=== PATIENT | male | born 1985 ===

== ENCOUNTER 2016-08-23 13:44 | Emergency (ER) | payer OTHER ==
[2016-08-23 13:54] VITALS: BP 113/56; PULSE 98; RESP 18; O2SAT 99
--- NOTE | 2016-08-23 14:20 | ED PDOC ---
HPI: General Adult Time Seen by Provider: 08/23/16 14:00 Chief Complaint (Nursing): Flu-like Symptoms Chief Complaint (Provider): Flue-like symptoms History Per: Patient History/Exam Limitations: no limitations Onset/Duration Of Symptoms: Days (x3) Additional Complaint(s): Jake Montano, 31 year old male presents to the ED on 08/23/16 with a fever associated with a dry cough, sore throat, intermittent nausea, and diffuse body aches for 3 days prior to arrival. He denies any abdominal pain and his last dose of Motrin was taken this morning. The patient did not take his temperature at home. Past Medical History Reviewed: Historical Data, Nursing Documentation, Vital Signs Vital Signs: Last Vital Signs Temp 99.8 F H 08/23/16 15:17 Pulse 98 H 08/23/16 13:51 Resp 18 08/23/16 13:51 BP 113/56 L 08/23/16 13:51 Pulse Ox 99 08/23/16 14:23 - Medical History PMH: No Chronic Diseases - Family History Family History: States: Unknown Family Hx - Immunization History Hx Tetanus Toxoid Vaccination: No Hx Influenza Vaccination: No Hx Pneumococcal Vaccination: No - Home Medications Home Medications: Ambulatory Orders Medication Instructions Recorded Ibuprofen 600 mg PO Q8 #30 tab 05/30/15 Azithromycin 250 mg PO DAILY #6 tab 08/23/16 - Allergies Allergies/Adverse Reactions: Allergies Allergy/AdvReac Type Severity Reaction Status Date / Time No Known Allergies Allergy Verified 08/23/16 13:50 Review of Systems ROS Statement: Except As Marked, All Systems Reviewed And Found Negative Constitutional: Positive for: Fever, Other (diffuse body aches ) ENT: Positive for: Other (sore throat) Respiratory: Positive for: Cough (dry) Gastrointestinal: Positive for: Nausea (intermittent). Negative for: Abdominal Pain Physical Exam - Reviewed Nursing Documentation Reviewed: Yes Vital Signs Reviewed: Yes - Physical Exam Appears: Positive for: Non-toxic, No Acute Distress Head Exam: Positive for: ATRAUMATIC, NORMOCEPHALIC Skin: Positive for: Normal Color Eye Exam: Positive for: EOMI, Normal appearance, PERRL ENT: Positive for: Pharyngeal Erythema Neck: Positive for: Normal, Painless ROM Cardiovascular/Chest: Positive for: Regular Rate, Rhythm, Chest Non Tender Respiratory: Positive for: Normal Breath Sounds. Negative for: Accessory Muscle Use, Respiratory Distress Gastrointestinal/Abdominal: Positive for: Normal Exam, Bowel Sounds, Soft Extremity: Positive for: Normal ROM Neurologic/Psych: Positive for: Alert, Oriented (x3) - Laboratory Results Result Diagrams: 08/23/16 14:45 08/23/16 14:45 Interpretation Of Abn Labs: elevated wbc - ECG O2 Sat by Pulse Oximetry: 99 (RA) Pulse Ox Interpretation: Normal Medical Decision Making Medical Decision Making: Initial Impression: Flue-like symptoms Initial Plan: * Chest Two Views (PA/LAT) [RAD] Stat * Influenza A B Stat * Rapid Strep Group A Antigen Stat * Tylenol 325 mg tab 975 mg PO Once Stat * Reevaluation Scribe Attestation: Documented by Chrissie Duckworth, acting as a scribe for Melina Pedraza PA-C. Provider Scribe Attestation: All medical record entries made by the Scribe were at my direction and personally dictated by me. I have reviewed the chart and agree that the record accurately reflects my personal performance of the history, physical exam, medical decision making, and the department course for this patient. I have also personally directed, reviewed, and agree with the discharge instructions and disposition. Disposition - Clinical Impression Clinical Impression: URI (upper respiratory infection) - Patient ED Disposition Is Patient to be Admitted: No Counseled Patient/Family Regarding: Diagnosis, Need For Followup, Rx Given - Disposition Referrals: [facility] [place] [Outside] Disposition: Routine/Home Disposition Time: 15:50 Condition: GOOD Prescriptions: Azithromycin 250 mg PO DAILY #6 tab Instructions: Upper Respiratory Infection (ED) Print Language: [place]
[2016-08-23] MEDS ORDERED: Sodium Chloride 0.9% 1,000 ML IV STA (14:37)
[2016-08-23 14:54] LABS: BASO % 0.3 % (0.0-2.0); HEMATOCRIT 39.1 % (35.0-51.0); LYMPH # 0.9 K/uL (1.0-4.3); LYMPH % 6.8 % (20.0-40.0); MEAN CELL VOLUME 91.1 fl (80.0-94.0); MEAN CORPUSCULAR HEMOGLOBIN 31.8 pg (27.0-31.0); MEAN CORPUSCULAR HGB CONC 34.9 g/dL (33.0-37.0); MEAN PLATELET VOLUME 8.7 fl (7.2-11.7); MONO # 1.8 K/uL (0.0-0.8); MONO % 13.5 % (0.0-10.0); NEUT # 10.4 K/uL (1.8-7.0); NEUT % 79.4 % (50.0-75.0); PLATELET COUNT 137 K/uL (130-400); RED CELL DISTRIBUTION WIDTH 13.2 % (11.5-14.5); WHITE BLOOD COUNT 13.1 K/uL (4.8-10.8)
[2016-08-23 15:13] LABS: ALB/GLOB RATIO 1.3 (1.0-2.1); ALKALINE PHOSPHATASE 55 U/L (38-126); ALT/SGPT 33 U/L (21-72); AST/SGOT 30 U/L (17-59); BILIRUBIN,TOTAL 0.6 mg/dl (0.2-1.3); BLOOD UREA NITROGEN 13 mg/dl (9-20); CALCIUM 9.2 mg/dL (8.4-10.2); CARBON DIOXIDE 30 mmol/L (22-30); CHLORIDE 96 mmol/L (98-107); GFR AFRICAN-AMERICAN > 60; GLUCOSE,RANDOM 99 mg/dL (75-110); POTASSIUM 3.5 MMOL/L (3.6-5.0); SODIUM 136 mmol/l (132-148); TOTAL PROTEIN 7.3 G/DL (6.3-8.2)
[2016-08-23 15:14] VITALS: TEMP 99.8
[2016-08-23 15:19] LABS: NEUTROPHIL 76 % (42-75); TOTAL CELLS COUNTED 100
--- NOTE | 2016-08-23 15:28 | RAD ---
HISTORY: cough, fever COMPARISON: No prior. TECHNIQUE: Chest PA and lateral FINDINGS: LUNGS: No active pulmonary disease. PLEURA: No significant pleural effusion identified. No pneumothorax apparent. CARDIOVASCULAR: Normal. OSSEOUS STRUCTURES: No significant abnormalities. VISUALIZED UPPER ABDOMEN: Normal. OTHER FINDINGS: None. IMPRESSION: No active disease.
== END 2016-08-23 16:17 | disposition home or self-care (01) ==
LOC: H.ER 13:44
DX: J06.9 Acute upper respiratory infection, unspecified (principal); R05 Cough; J02.9 Acute pharyngitis, unspecified

== ENCOUNTER 2017-03-23 19:01 | Emergency (ER) | payer OTHER ==
[2017-03-23 19:12] VITALS: PULSE 69; RESP 16
[2017-03-23] MEDS ORDERED: Sodium Chloride 0.9% 1,000 ML IV STA (19:40)
[2017-03-23] MEDS ORDERED: Iohexol 240 (50 ml) PO ONE (19:42)
--- NOTE | 2017-03-23 19:49 | ED PDOC ---
HPI: Abdomen Chief Complaint (Provider): abdominal pain History Per: Patient History/Exam Limitations: no limitations Onset/Duration Of Symptoms: Days Outside of [place] travel?: No Current Symptoms Are (Timing): Still Present Severity: Moderate Pain Scale Rating Of: 6 Quality Of Discomfort: Burning, "Pain" Associated Symptoms: Nausea, Vomiting Exacerbating Factors: Food Alleviating Factors: None <Amberly Wagner - Last Filed: 03/23/17 23:33> <Marty Blandon - Last Filed: 03/23/17 23:39> Time Seen by Provider: 03/23/17 19:15 Chief Complaint (Nursing): Abdominal Pain Additional Complaint(s): Jake Montano is a 32 yo male who presented to ED today, 03/23/2017 with 5 days duration bilateral abdominal pain at the level of the umbilicus. He describes the pain as burning in nature, mildly exacerbated by food and smells (5/10 before food, and 6/10 after food). Has vomited twice, once on 03/18, and once today- vomit is nonbloody, non-bilious, with no coffee ground looking substances. No blood in stool, no issues with urination, denies chest pain and shortness of breath, or other discomfort. He has not tried any medications at home, and nothing in particular makes the pain better. PMH: none Past Surg hx: none Meds: none Allergies: none Fam hx: non-contributory, denies FH of similar problems, gastric ulcers, gastric problems Social hx: 1-3 beers daily x 5 yrs (stopped after symptom started on 03/18), denies tobacco use, denies illicit drug use (Amberly Wagner) Past Medical History Reviewed: Vital Signs - Medical History PMH: No Chronic Diseases - Surgical History Surgical History: No Surg Hx - Family History Family History: States: Unknown Family Hx - Social History Alcohol: < 2 Drinks/Day (1-3 beers/day after work) Drugs: Denies - Immunization History Hx Tetanus Toxoid Vaccination: No Hx Influenza Vaccination: No Hx Pneumococcal Vaccination: No <Amberly Wagner - Last Filed: 03/23/17 23:33> <Marty Blandon - Last Filed: 03/23/17 23:39> Vital Signs: Last Vital Signs Temp 98.8 F 03/23/17 23:13 Pulse 69 03/23/17 23:13 Resp 16 03/23/17 23:13 BP 109/65 03/23/17 23:13 Pulse Ox 100 03/23/17 23:33 - Home Medications Home Medications: Ambulatory Orders Medication Instructions Recorded Ibuprofen 600 mg PO Q8 #30 tab 05/30/15 Azithromycin 250 mg PO DAILY #6 tab 08/23/16 - Allergies Allergies/Adverse Reactions: Allergies Allergy/AdvReac Type Severity Reaction Status Date / Time No Known Allergies Allergy Verified 03/23/17 19:08 Review of Systems Constitutional: Negative for: Fever, Chills, Malaise ENT: Negative for: Nose Congestion, Throat Pain Cardiovascular: Negative for: Chest Pain, Edema Respiratory: Negative for: Cough, Shortness of Breath Gastrointestinal: Positive for: Nausea, Vomiting, Abdominal Pain. Negative for : Diarrhea, Constipation, Melena, Hematochezia, Hematemesis Genitourinary Male: Negative for: Dysuria Musculoskeletal: Negative for: Leg Pain Skin: Negative for: Rash, Lesions Neurological: Negative for: Weakness, Numbness, Change in Speech <Amberly Wagner - Last Filed: 03/23/17 23:33> Physical Exam - Reviewed Vital Signs Reviewed: Yes - Physical Exam Appears: Positive for: Non-toxic, No Acute Distress Skin: Positive for: Normal Color, Warm, Dry. Negative for: Pallor Eye Exam: Positive for: Normal appearance, PERRL. Negative for: Conjunctival injection, Scleral icterus ENT: Positive for: Normal ENT Inspection. Negative for: Nasal Congestion, Pharyngeal Erythema Neck: Positive for: Normal, Painless ROM, Supple Cardiovascular/Chest: Positive for: Regular Rate, Rhythm, Chest Non Tender. Negative for: JVD, Murmur Respiratory: Positive for: Normal Breath Sounds. Negative for: Accessory Muscle Use, Rales, Rhonchi, Wheezing Pulses-Post. Tibialis (L): 2+ Pulses-Post. Tibialis (R): 2+ Pulses-Radial (L): 2+ Pulses-Radial (R): 2+ Gastrointestinal/Abdominal: Positive for: Bowel Sounds, Soft. Negative for: Tenderness, Mass, Distended, Guarding, Rebound Back: Positive for: Normal Inspection Extremity: Positive for: Normal ROM. Negative for: Tenderness, Pedal Edema, Deformity Neurologic/Psych: Positive for: Alert, Oriented <Amberly Wagner - Last Filed: 03/23/17 23:33> - Laboratory Results Result Diagrams: 03/23/17 19:50 03/23/17 19:50 - ECG O2 Sat by Pulse Oximetry: 100 <Amberly Wagner - Last Filed: 03/23/17 23:33> - Laboratory Results Result Diagrams: 03/23/17 19:50 03/23/17 19:50 <Marty Blandon Junior - Last Filed: 03/23/17 23:39> Medical Decision Making <Amberly Wagner - Last Filed: 03/23/17 23:33> <Jamia,Marty Junior - Last Filed: 03/23/17 23:39> Medical Decision Making: CBC w/ diff CMP Lipase Pepcid 20 mg IVP Zofran 4mg IVP NS 1L @ 999ml/hr Urinalysis Urine C&S Abdomen and Pelvis CT with IV and PO contrast - FINDINGS: Lower thorax: no acute findings ABDOMEN: Liver: unremarkable, no mass Gallbladder and bile ducts: no calcified stones, no ductal dilation Pancreas: no ductal dilation. no mass Spleen: no splenomegaly Adrenals: no mass Kidneys and ureters: no mass. no hydronephrosis Stomach and bowel: no definite mural thickening. no obstruction Appendix: normal caliber, no inflammation PELVIS: Bladder: unremarkable Reproductive: unremarkable as visualized ABDOMEN and PELVIS: Intraperitoneal space: no significant fluid collection. no free air Bones/joints: no acute fracture Soft tissues: minimal gynecomastia Vasculature: unremarkable, no aneurysm. Lymph nodes: few small calcifications/calcified lymph nodes within mesentery. IMPRESSION: 1. No definite acute intraabominal abnormality. 2. Incidental/non-acute findings are described above. Bloodwork and UA unremarkable. Pt felt better after interventions. Case discussed with Dr. Blandon. (Amberly Wagner) Patient presents to ED with complaints of abdominal pain. CT and labs read as normal. Patient is tolerating PO and notes improvement in symptom. Patient will be referred to the clinic and is stable for discharge. Scribe Attestation: Documented by Leydi Mixon acting as a scribe for Marty Blandon MD. Scribe Attestation: All medical record entries made by the Scribe were at my direction and personally dictated by me. I have reviewed the chart and agree that the record accurately reflects my personal performance of the history, physical exam, medical decision making, and the department course for this patient. I have also personally directed, reviewed, and agree with the discharge instructions and disposition. (Marty Blandon) Disposition - Patient ED Disposition Is Patient to be Admitted: No Counseled Patient/Family Regarding: Studies Performed - Disposition Disposition Time: 23:31 <Amberly Wagner - Last Filed: 03/23/17 23:33> <Marty Blandon - Last Filed: 03/23/17 23:39> - Clinical Impression Clinical Impression: Abdominal pain - Disposition Referrals: [facility] [Outside] [facility] [place] [Outside] Condition: IMPROVED Additional Instructions: follow up with your primary doctor in 1-2 days return to the ED with any worsening or concerning symptoms Instructions: Abdominal Pain (ED) Forms: [facility] (Urdu)
[2017-03-23 20:01] LABS: BASO # 0.1 K/uL (0.0-0.2); BASO % 0.8 % (0.0-2.0); EOS # 0.2 K/uL (0.0-0.7); EOS % 2.1 % (0.0-4.0); HEMOGLOBIN 15.6 g/dL (12.0-18.0); LYMPH # 1.9 K/uL (1.0-4.3); LYMPH % 24.4 % (20.0-40.0); MEAN CELL VOLUME 90.8 fl (80.0-94.0); MEAN CORPUSCULAR HEMOGLOBIN 31.9 pg (27.0-31.0); MEAN CORPUSCULAR HGB CONC 35.1 g/dL (33.0-37.0); MEAN PLATELET VOLUME 9.1 fl (7.2-11.7); MONO # 0.6 K/uL (0.0-0.8); MONO % 8.2 % (0.0-10.0); NEUT # 4.9 K/uL (1.8-7.0); NEUT % 64.5 % (50.0-75.0); NRBC % 0.1 % (0.0-0.0); RBC 4.9 Mil/uL (4.40-5.90); WHITE BLOOD COUNT 7.6 K/uL (4.8-10.8)
[2017-03-23 20:08] LABS: URINE BILIRUBIN NEGATIVE (NEGATIVE); URINE BLOOD NEGATIVE (NEGATIVE); URINE CLARITY CLEAR (Clear); URINE COLOR STRAW (YELLOW); URINE GLUCOSE (UA) NEG (Normal); URINE LEUKOCYTE ESTERASE NEG Leu/uL (Negative); URINE NITRATE NEGATIVE (NEGATIVE); URINE PROTEIN NEGATIVE (NEGATIVE); URINE UROBILINOGEN 0.2-1.0 mg/dL (0.2-1.0)
[2017-03-23 20:16] LABS: ALB/GLOB RATIO 1.5 (1.0-2.1); ALBUMIN 4.8 g/dL (3.5-5.0); ALT/SGPT 43 U/L (21-72); AST/SGOT 26 U/L (17-59); BLOOD UREA NITROGEN 17 mg/dl (9-20); CALCIUM 9.8 mg/dL (8.4-10.2); GFR AFRICAN-AMERICAN > 60; GFR NON-AFRICAN AMERICAN > 60; LIPASE 78 U/L (23-300)
[2017-03-23] MEDS ORDERED: Sodium Chloride 0.9% 50 ML IV ONE (20:59)
[2017-03-23] MEDS ORDERED: Iohexol 300 100 ML IJ ONE (20:59)
--- NOTE | 2017-03-23 22:45 | CT ---
EXAM: CT Abdomen and Pelvis With Intravenous Contrast CLINICAL HISTORY: 32 years old, male; Pain; Abdominal pain; Generalized; Patient HX: Upper quadrant umbilical pain n v x 5 days TECHNIQUE: Axial computed tomography images of the abdomen and pelvis with intravenous contrast. All CT scans at this facility use one or more dose reduction techniques, viz.: automated exposure control; ma/kV adjustment per patient size (including targeted exams where dose is matched to indication; i.e. head); or iterative reconstruction technique. Coronal and sagittal reformatted images were created and reviewed. CONTRAST: 98 mL of OMNIPAQUE administered intravenously. COMPARISON: No relevant prior studies available. FINDINGS: Lower thorax: No acute findings. ABDOMEN: Liver: Unremarkable. No mass. Gallbladder and bile ducts: No calcified stones. No ductal dilation. Pancreas: No ductal dilation. No mass. Spleen: No splenomegaly. Adrenals: No mass. Kidneys and ureters: No mass. No hydronephrosis. Stomach and bowel: No definite mural thickening. No obstruction. Appendix: Normal caliber. No inflammation. PELVIS: Bladder: Unremarkable. Reproductive: Unremarkable as visualized. ABDOMEN and PELVIS: Intraperitoneal space: No significant fluid collection. No free air. Bones/joints: No acute fracture. Soft tissues: Minimal gynecomastia. Vasculature: Unremarkable. No aneurysm. Lymph nodes: Few small calcifications/calcified lymph nodes within mesentery. IMPRESSION: 1. No definite acute intraabdominal abnormality. 2. Incidental/non-acute findings are described above.
[2017-03-23 23:14] VITALS: BP 109/65; TEMP 98.8
[2017-03-23 23:30] VITALS: O2SAT 100
== END 2017-03-23 22:19 | disposition home or self-care (01) ==
LOC: H.ER 19:01
DX: R10.9 Unspecified abdominal pain (principal); R11.2 Nausea with vomiting, unspecified
CPT/HCPCS: 74177; 80053; 81003; 83690; 85025; 87086; 96361; 96374; 96375; 99283; J2405; J7040; Q9966; Q9967